=== PATIENT | male | born 1970 | race Caucasian/White ===

== ENCOUNTER 2016-09-30 16:48 | Emergency (ER) | payer BC, OTHER ==
[~2016-09-30] VITALS: Ht 180.3 cm; Wt 74.8 kg
[2016-09-30] MEDS ORDERED: ALBU17IN2 INH (16:57)
[2016-09-30] MEDS ORDERED: ASPIRIN 81 MG CHEW TABLET PO ONE (17:00)
[2016-09-30] MEDS ORDERED: HEPARIN DRIP 25,000 UNITS in APPROPRIATE DILUENT 1 EA IV SCH (17:07)
[2016-09-30] MEDS: NITROGLYCERIN 0.4 MG SUBL TABLET SL PRN ×3 (17:08→17:22)
[2016-09-30 17:14] LABS: VENOUS BASE EXCESS -0.2 (-2.0-2.0); VENOUS O2 SATURATION 85.7 % (60.0-80.0); VENOUS PARTIAL PRESSURE CO2 43.2 mmHg (38.0-50.0); VENOUS PARTIAL PRESSURE O2 51.6 mmHg (30.0-50.0); VENOUS TOTAL CO2 26.4 MEQ/L (24.0-28.0)
[2016-09-30] MEDS ORDERED: TENECTEPLASE 50 MG KIT (TNKase)(J3101) IV ONE (17:15)
[2016-09-30] MEDS ORDERED: CLOPIDOGREL 300 MG TAB (PLAVIX) PO ONE (17:15)
[2016-09-30] MEDS ORDERED: HEPARIN SOD (PORCINE) 5000 UNITS/ML VIAL IV ONE (17:15)
[2016-09-30 17:19] LABS: BASO # 0.1 K/mm3 (0.0-0.2); BASO % 0.9 % (0.0-1.0); EOS # 0.2 K/mm3 (0.0-0.50); LARGE UNSTAINED CELL # 0.2 K/mm3 (0.0-0.4); LARGE UNSTAINED CELL % 2.1 % (0.0-4.0); LYMPH # 2.5 K/mm3 (1.5-4.5); LYMPH % 25.8 % (24.0-44.0); MEAN CORPUSCULAR HEMOGLOBIN 34.2 pg (27.0-33.0); MEAN CORPUSCULAR HGB CONC 35.3 g/dl (32.0-36.5); MEAN CORPUSCULAR VOLUME 96.8 fl (80.0-96.0); MONO # 0.3 K/mm3 (0.0-0.8); MONO % 3.5 % (0.0-5.0); NEUTROPHILS # 6.4 K/mm3 (1.8-7.7); NEUTROPHILS % 65.7 % (36.0-66.0); PLATELET COUNT, AUTOMATED 386 k/mm3 (150-450); WHITE BLOOD COUNT 9.8 K/mm3 (4.0-10.0)
[2016-09-30 17:22] VITALS: BP 121/72
[2016-09-30] MEDS ORDERED: MORPHINE 4 MG/ML 1ML SYRINGE As Ordered ONE (17:24)
[2016-09-30] MEDS: MORPHINE 4 MG/ML 1ML SYRINGE IV PRN ×2 (17:25→17:40)
[2016-09-30 17:38] LABS: INR 0.89
[2016-09-30] MEDS ORDERED: NS 1,000 ML IV ONE (17:45)
[2016-09-30 17:47] LABS: ALBUMIN 4.2 GM/DL (3.2-5.2); ALBUMIN/GLOBULIN RATIO 1.31 (1.00-1.93); ALKALINE PHOSPHATASE 90 U/L (45-117); ALT/SGPT 21 U/L (12-78); ANION GAP 8 MEQ/L (8-16); AST/SGOT 16 U/L (15-37); BILIRUBIN,DIRECT < 0.1 MG/DL (0.0-0.2); BILIRUBIN,TOTAL 0.3 MG/DL (0.2-1.0); BLOOD UREA NITROGEN 8 MG/DL (7-18); CALCIUM LEVEL 8.7 MG/DL (8.5-10.1); CARBON DIOXIDE LEVEL 27 MEQ/L (21-32); CHLORIDE LEVEL 105 MEQ/L (98-107); CREATININE FOR GFR 1.11 MG/DL (0.70-1.30); GLOMERULAR FILTRATION RATE > 60.0 (>60); GLUCOSE, FASTING 122 MG/DL (70-105); POTASSIUM SERUM 4.4 MEQ/L (3.5-5.1); SODIUM LEVEL 140 MEQ/L (136-145); TOTAL PROTEIN 7.4 GM/DL (6.4-8.2)
[2016-09-30 17:59] VITALS: BP 110/68
--- NOTE | 2016-10-01 07:23 | ECGEPIP ---
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
--- NOTE | 2016-10-01 07:23 | ECGEPIP ---
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
--- NOTE | 2016-10-01 08:27 | REP ---
Portable chest, single AP view, patient sitting: The lung fish are clear. The cardiac size is normal. The may, mediastinum, and bony thorax are unremarkable. Impression: Negative portable chest. Signed by Tejinder Beebe MD 10/01/2016 08:19 A
--- NOTE | 2016-10-03 09:07 | ECGEPIP ---
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
== END 2016-09-30 18:00 | disposition short-term general hospital (02) ==
LOC: M ED 17:25
DX: I21.3 ST elevation (STEMI) myocardial infarction of unspecified site (principal); F17.210 Nicotine dependence, cigarettes, uncomplicated; J45.909 Unspecified asthma, uncomplicated; K21.9 Gastro-esophageal reflux disease without esophagitis

== ENCOUNTER 2016-10-26 08:30 | Outpatient (RCR) | payer OTHER ==
[~2016-10-26 08:30] MED LIST: ALBU17IN2 INH
== END 2016-11-08 ==
LOC: M CR 08:30
PROVIDERS: ATTEND Internal Medicine Cardiovascular Disease
DX: Z51.89 Encounter for other specified aftercare (principal); Z98.1 Arthrodesis status

== ENCOUNTER 2016-11-09 08:57 | Outpatient (RCR) | payer OTHER | END 2016-12-08 | LOC: M CR 08:57 | PROVIDERS: ATTEND Internal Medicine Cardiovascular Disease | DX: Z51.89 Encounter for other specified aftercare (principal); Z98.1 Arthrodesis status ==

== ENCOUNTER 2018-12-01 16:08 | Emergency (ER) | payer OTHER ==
[~2018-12-01] VITALS: Ht 180.3 cm; Wt 82.0 kg
[2018-12-01 16:36] LABS: BASO # 0.1 10^3/uL (0.0-0.2); BASO % 0.6 % (0.0-1.0); EOS # 0.1 10^3/uL (0.0-0.50); EOS % 0.5 % (0.0-3.0); HEMATOCRIT 39.9 % (42.0-52.0); HEMOGLOBIN 13.8 g/dl (13.5-17.5); LYMPH % 18.4 % (24.0-44.0); MEAN CORPUSCULAR HEMOGLOBIN 32.9 pg (27.0-33.0); MEAN CORPUSCULAR HGB CONC 34.6 g/dl (32.0-36.5); MONO # 0.6 10^3/uL (0.0-0.8); MONO % 5.8 % (0.0-5.0); NEUTROPHILS # 8.1 10^3/uL (1.8-7.7); NEUTROPHILS % 74.3 % (36.0-66.0); PLATELET COUNT, AUTOMATED 260 10^3/uL (150-450)
--- NOTE | 2018-12-01 16:43 | REP ---
Portable chest, 04:22 p.m., single AP upright view: Comparison is 09/30/2016. The lung fish are clear. The cardiac size is normal. The may, mediastinum, and skeletal structures are unremarkable. Impression: Negative portable chest. There is no interval change. Electronically Signed by Tejinder Beebe MD 12/01/2018 04:35 P
[2018-12-01] MEDS ORDERED: MORPHINE 2 MG/ML 1ML SYRINGE (J2270) IV PRN (16:45)
[2018-12-01] MEDS ORDERED: GI COCKTAIL 50ML BTL(HYOSCYAMINE/MAALOX/LIDOCAINE VISCOUS)(1:3:1) PO ONE (16:45)
[2018-12-01 16:46] LABS: INR 0.96; PROTHROMBIN TIME 12.5 SECONDS (11.8-14.0)
[2018-12-01 16:47] LABS: PARTIAL THROMBOPLASTIN TIME 24.9 SECONDS (25.0-38.4)
[2018-12-01 17:12] LABS: ALBUMIN 3.9 GM/DL (3.2-5.2); ALT/SGPT 40 U/L (12-78); BILIRUBIN,DIRECT 0.1 MG/DL (0.0-0.2); BILIRUBIN,TOTAL 0.2 MG/DL (0.2-1.0); BLOOD UREA NITROGEN 18 MG/DL (7-18); CALCIUM LEVEL 9.1 MG/DL (8.5-10.1); CARBON DIOXIDE LEVEL 25 MEQ/L (21-32); CHLORIDE LEVEL 106 MEQ/L (98-107); CK-MB VALUE MASS 1.6 NG/ML (<3.6); CPK CREATINE PHOSPHOKINASE 111 U/L (39-308); CREATININE FOR GFR 1.01 MG/DL (0.70-1.30); FREE T4 1.37 NG/DL (0.76-1.46); GLOMERULAR FILTRATION RATE > 60.0 (>60); GLUCOSE, FASTING 89 MG/DL (70-100); LIPASE 200 U/L (73-393); MB/CK RELATIVE INDEX 1.44 (< OR =4); POTASSIUM SERUM 4.2 MEQ/L (3.5-5.1); SODIUM LEVEL 140 MEQ/L (136-145); TROPONIN I < 0.02 NG/ML (< 0.10)
[2018-12-01] MEDS ORDERED: ISOVUE-370 76% 100ML VIAL (Q9967) As Ordered ONE (18:09)
--- NOTE | 2018-12-01 19:52 | REPVR ---
EXAM: CT Angiography Chest With Contrast EXAM DATE/TIME: 12/01/2018 6:13 PM CLINICAL HISTORY: 47 years old, male; Chest pain TECHNIQUE: Imaging protocol: Axial computed tomographic angiography images of the chest with intravenous contrast using CT angiography protocol. Coronal and sagittal reformatted images were created and reviewed. 3D rendering: MIP reconstructed images were created and reviewed. Radiation optimization: All CT scans at this facility use at least one of these dose optimization techniques: automated exposure control; mA and/or kV adjustment per patient size (includes targeted exams where dose is matched to clinical indication); or iterative reconstruction. Contrast material: ISOVUE 370; Contrast volume: 100 ml; Contrast route: IV; COMPARISON: CR PORTABLE CHEST X-RAY 12/01/2018 4:20 PM FINDINGS: Pulmonary arteries: Normal. No pulmonary emboli. Aorta: Unremarkable. No aortic aneurysm. No aortic dissection. Lungs: Unremarkable. No consolidation. No masses. Pleural space: Unremarkable. No pneumothorax. No pleural effusion. Heart: Unremarkable. No cardiomegaly. No pericardial effusion. Lymph nodes: Unremarkable. No enlarged lymph nodes. Bones/joints: Unremarkable. No acute fracture. Soft tissues: Unremarkable. IMPRESSION: No acute findings. . No pulmonary embolism Electronically signed by: Sofia Adlridge On 12/01/2018 19:52:06 PM
[2018-12-01 20:07] LABS: CK-MB VALUE MASS 1.5 NG/ML (<3.6); MB/CK RELATIVE INDEX 1.5 (< OR =4); TROPONIN I 0.05 NG/ML (< 0.10)
[2018-12-01] MEDS ORDERED: SUCR1TA PO (20:43)
[2018-12-01] MEDS ORDERED: SUCRALFATE SUSP 1GM/10ML UD PO ONE (21:00)
[2018-12-01 21:17] VITALS: BP 115/72
--- NOTE | 2018-12-02 06:57 | ECGEPIP ---
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
--- NOTE | 2018-12-02 07:09 | ECGEPIP ---
[facility] - ED Test Date: 2018-12-01 Pat Name: KARL EATON Department: Room: - Gender: Male Psychiatry Adult Physician: kisha : 1970 Requested By: SALLY Bills Order Number: [id number] Reading MD: Oren Leger Measurements Intervals [place] Rate: 74 P: 16 PA: 157 QRS: QRSD: 104 T: 44 QT: 375 QTc: 418 Interpretive Statements SINUS RHYTHM INCOMPLETE RIGHT BUNDLE BRANCH BLOCK SIMILAR TO PRIOR ON SAME DATE Electronically Signed on 12-02-2018 7:09:40 EDT by Oren Leger
== END 2018-12-01 21:18 | disposition home or self-care (01) ==
LOC: M ED 16:08
DX: K21.0 Gastro-esophageal reflux disease with esophagitis (principal); R07.89 Other chest pain; I45.10 Unspecified right bundle-branch block; E11.9 Type 2 diabetes mellitus without complications; F17.210 Nicotine dependence, cigarettes, uncomplicated; Z79.51 Long term (current) use of inhaled steroids; Z86.79 Personal history of other diseases of the circulatory system; Z95.5 Presence of coronary angioplasty implant and graft
CPT/HCPCS: 36415; 71045; 71275; 80048; 80076; 82550; 82553; 83690; 84439; 84443; 85025; 85610; 85730; 93005; 93041; 94760; 99285; Q9967

== ENCOUNTER 2024-06-21 18:44 | Emergency (ER) | payer OTHER ==
[~2024-06-21] VITALS: Ht 180.3 cm; Wt 65.6 kg
[~2024-06-21 18:44] MED LIST changes: +SUCR1TA PO
[2024-06-21] MEDS ORDERED: ALBU8.5H PO (19:03)
[2024-06-21] MEDS ORDERED: METO1TAB87 PO (19:03)
[2024-06-21] MEDS ORDERED: CLOP75TA2 PO (19:03)
[2024-06-21] MEDS ORDERED: AMOX875T2 PO (19:03)
[2024-06-21] MEDS ORDERED: ATOR80TA59 PO (19:03)
[2024-06-21] MEDS ORDERED: JARD1TAB PO (19:03)
[2024-06-21] MEDS ORDERED: LISI2.5T9 PO (19:03)
[2024-06-21] MEDS ORDERED: BENZ-18 PO (19:03)
[2024-06-21 19:14] LABS: BASO # 0.1 10^3/uL (0.0-0.2); BASO % 0.7 % (0.0-1.0); EOS # 0.1 10^3/uL (0.0-0.5); EOS % 0.6 % (0.0-3.0); HEMATOCRIT 40.5 % (42.0-52.0); HEMOGLOBIN 13.7 g/dl (13.5-17.5); LYMPH # 2.9 10^3/uL (1.5-5.0); LYMPH % 22.6 % (24.0-44.0); MEAN CORPUSCULAR HEMOGLOBIN 32.6 pg (27.0-33.0); MEAN CORPUSCULAR HGB CONC 33.8 g/dl (32.0-36.5); MEAN CORPUSCULAR VOLUME 96.4 fl (80.0-96.0); MONO # 0.9 10^3/uL (0.0-0.8); MONO % 6.9 % (2.0-8.0); NEUTROPHILS # 8.8 10^3/uL (1.5-8.5); NEUTROPHILS % 68.6 % (36.0-66.0); PLATELET COUNT, AUTOMATED 646 10^3/uL (150-450); WHITE BLOOD COUNT 12.8 10^3/uL (4.0-10.0)
[2024-06-21 19:30] LABS: INR 0.98; PARTIAL THROMBOPLASTIN TIME 22.1 SECONDS (24.8-34.2); PROTHROMBIN TIME 13.2 SECONDS (12.5-14.5)
[2024-06-21 19:46] LABS: LIPASE 43 U/L (12-53)
[2024-06-21 19:48] LABS: ALBUMIN 3.2 G/DL (3.2-5.2); ALKALINE PHOSPHATASE 124 U/L (40-129); ALT/SGPT 44 U/L (7.0-40); AST/SGOT 22 U/L (<34); BILIRUBIN,DIRECT < 0.1 MG/DL (<0.4); BILIRUBIN,TOTAL 0.3 MG/DL (0.3-1.2); BLOOD UREA NITROGEN 12 MG/DL (9-23); CALCIUM LEVEL 9.9 MG/DL (8.5-10.1); CARBON DIOXIDE LEVEL 29 MMOL/L (20-31); CHLORIDE LEVEL 100 MMOL/L (98-107); CK-MB VALUE MASS < 1.0 NG/ML (<3.6); CREATININE FOR GFR 0.82 MG/DL (0.70-1.30); GLOMERULAR FILTRATION RATE > 60.0 (>56); GLUCOSE, FASTING 260 MG/DL (60-100); POTASSIUM SERUM 4.5 MMOL/L (3.5-5.1); SODIUM LEVEL 136 MMOL/L (136-145); TOTAL PROTEIN 7.2 G/DL (5.7-8.2)
[2024-06-21 19:50] LABS: THYROID STIMULATING HORMONE 3.219 uIU/ML (0.55-4.78)
[2024-06-21 19:51] LABS: FREE T4 1.55 NG/DL (0.89-1.76)
[2024-06-21 19:54] LABS: CPK CREATINE PHOSPHOKINASE 55 U/L (46-171); MB/CK RELATIVE INDEX 1.81 (< OR =4)
[2024-06-21 21:01] LABS: CK-MB VALUE MASS < 1.0 NG/ML (<3.6)
[2024-06-21 21:04] LABS: CPK CREATINE PHOSPHOKINASE 37 U/L (46-171)
[2024-06-21] MEDS: ASPIRIN 81MG CHEW TABLET PO ONE (21:40)
[2024-06-21 21:41] VITALS: BP 125/79
[2024-06-21] MEDS: NITROGLYCERIN 0.4MG SUBL TABLET SL STA (21:41)
[2024-06-21] MEDS ORDERED: HEPARIN SOD (PORCINE) 5000UNITS/ML 1ML VIAL/SYRINGE IV PRN (23:05)
[2024-06-21] MEDS: HEPARIN SOD (PORCINE) 5000UNITS/ML 1ML VIAL/SYRINGE IV ONE (23:31)
[2024-06-21] MEDS: HEPARIN DRIP 25,000 UNITS in IV 1 EA IV SCH (23:32)
[2024-06-21 23:44] LABS: INR 1.01; PARTIAL THROMBOPLASTIN TIME 23.2 SECONDS (24.8-34.2); PROTHROMBIN TIME 13.6 SECONDS (12.5-14.5)
[2024-06-22 00:05] LABS: RSV AMPLIFICATION NEGATIVE (NEGATIVE)
[2024-06-22 01:10] VITALS: BP 133/72; TEMP 97; O2SAT 98
== END 2024-06-22 01:15 | disposition short-term general hospital (02) ==
LOC: M ED 18:44
DX: I21.4 Non-ST elevation (NSTEMI) myocardial infarction (principal); J18.9 Pneumonia, unspecified organism; R00.1 Bradycardia, unspecified; I45.10 Unspecified right bundle-branch block; I25.2 Old myocardial infarction; K21.9 Gastro-esophageal reflux disease without esophagitis; I10 Essential (primary) hypertension; E78.5 Hyperlipidemia, unspecified; J45.909 Unspecified asthma, uncomplicated; Z87.891 Personal history of nicotine dependence; Z79.52 Long term (current) use of systemic steroids; Z79.02 Long term (current) use of antithrombotics/antiplatelets; Z79.2 Long term (current) use of antibiotics; Z79.899 Other long term (current) drug therapy